=== PATIENT | female | born 1975 | race Caucasian/White ===

== ENCOUNTER 2020-12-13 06:31 | Day surgery (SDC) | payer OTHER ==
[2020-12-13] MEDS ORDERED: Sodium Chloride 0.9% 1,000 ML IV SCH (07:00)
[2020-12-13] MEDS ORDERED: fentaNYL 100 MCG/2 ML SDV ONE (07:25)
[2020-12-13] MEDS ORDERED: Propofol 200 MG/20 ML SDV ONE (07:25)
[2020-12-13] MEDS ORDERED: Midazolam 1 MG/ML 2 ML SDV ONE (07:25)
--- NOTE | 2020-12-13 10:17 | OR ---
DATE OF PROCEDURE: 12/13/2020 SURGEON: Costa Mensah MD PROCEDURE: Colonoscopy. FINDINGS: Very small, approximately less than 5 mm polyp, completely removed using cold biopsy forceps. COMPLICATIONS: None. COFFEE SUPERVISOR: None. PREOPERATIVE DIAGNOSIS: Family history of colorectal cancer. POSTOPERATIVE DIAGNOSIS: Family history of colorectal cancer. RISKS: Risks, benefits, alternatives, and limitations including, but not limited to infection, bleeding, and perforation. We also discussed false positives and false negatives. PROCEDURE IN DETAIL: The patient was placed in left lateral decubitus position. Digital rectal exam was performed without abnormality. Scope was introduced and advanced atraumatically to the ileocecal valve. A photo was taken of this. Scope was brought back to the ascending, transverse, descending colon, and retroflexed. In the sigmoid colon/rectum, a very small polyp was identified, completely removed using cold biopsy forceps. No abnormal bleeding was noted after removal. No old or new blood. No diverticulosis. No colitis. No abnormalities on retroflexion. Greater than 8 minutes was spent removing the scope. The prep was acceptable, approximately 95% of the luminal surface could be seen with some solid and liquid stool remaining. The patient tolerated the procedure well. Costa Mensah MD /[id number]
== END 2020-12-13 09:32 | disposition home or self-care (01) ==
LOC: JP.SDS 06:31
PROVIDERS: ATTEND Surgery
DX: Z12.11 Encounter for screening for malignant neoplasm of colon (principal); K63.5 Polyp of colon; F17.290 Nicotine dependence, other tobacco product, uncomplicated; Z80.0 Family history of malignant neoplasm of digestive organs; Z86.010 Personal history of colon polyps; Z01.812 Encounter for preprocedural laboratory examination; Z20.822 Contact with and (suspected) exposure to COVID-19
CPT/HCPCS: 45380; 87635; J2250; J2704; J3010; J7030; U0002

== ENCOUNTER 2025-08-23 06:05 | Day surgery (SDC) | payer OTHER ==
[2025-08-23] MEDS: Lactated Ringers 1,000 ML IV SCH (07:04)
[2025-08-23] MEDS ORDERED: fentaNYL 50 MCG/ML SDV ONE (07:37)
[2025-08-23] MEDS ORDERED: Midazolam 1 MG/ML 2 ML SDV ONE (07:37)
[2025-08-23] MEDS ORDERED: Propofol 200 MG/20 ML SDV ONE (07:37)
== END 2025-08-23 09:15 | disposition home or self-care (01) ==
LOC: JP.SDS 06:05
PROVIDERS: ATTEND Surgery
DX: Z12.11 Encounter for screening for malignant neoplasm of colon (principal); D12.5 Benign neoplasm of sigmoid colon; F41.9 Anxiety disorder, unspecified; Z80.0 Family history of malignant neoplasm of digestive organs; Z91.013 Allergy to seafood; Z79.899 Other long term (current) drug therapy
CPT/HCPCS: 00811; 45385; J2250; J2704; J3010; J7120